=== PATIENT | male | born 1970 | race Caucasian/White ===

== ENCOUNTER 2016-07-14 20:32 | Emergency (ER) | payer SELFPAY ==
[~2016-07-14] VITALS: Ht 170.2 cm; Wt 68.9 kg
[2016-07-14 20:39] VITALS: BP 157/101
[2016-07-14] MEDS ORDERED: HYDROcodone/APAP 5/325 TABLET PO STA ×2 (22:12→23:19)
[2016-07-14] MEDS ORDERED: HYDROcodone/APAP 5/325 TABLET ONE ×2 (22:14→23:23)
[2016-07-14 22:30] LABS: BLOOD UREA NITROGEN 12 mg/dL (7-18)
[2016-07-14] MEDS ORDERED: CLINDAMYCIN 300 MG CAPSULE PO ONE (23:30)
== END 2016-07-14 23:37 | disposition home or self-care (01) ==
LOC: ED 23:00
DX: L02.511 Cutaneous abscess of right hand (principal); L03.113 Cellulitis of right upper limb
CPT/HCPCS: 10060; 36415; 80048; 82040; 85025